=== PATIENT | male | born 1995 | race Caucasian/White ===

== ENCOUNTER 2018-02-02 19:29 | Emergency (ER) | payer BC, OTHER ==
[2018-02-02 19:46] VITALS: BP 128/79
--- NOTE | 2018-02-02 20:02 | UC ---
Back Pain HPI - HPI Summary HPI Summary: This patient is a 22 year old M presenting to [facility] care with a chief complaint of bilateral flank pain (right worse than left) that began earlier today. The patient rates the pain 4/10 in severity. Symptoms aggravated by nothing. Symptoms alleviated by nothing. Patient reports fatigue, decreased appetite, headache, increased urinary frequency, nausea, and slight constipation. Patient denies dysuria. Patient reports he has been taking ibuprofen every day for the past 4 days due to shoulder pain (gym injury). - History of Current Complaint Chief Complaint: UCGeneralIllness Stated Complaint: LOW BACK PAIN Time Seen by Provider: 02/02/18 19:52 Hx Obtained From: Patient Onset/Duration: Sudden Onset, Lasting Hours, Still Present Timing: Constant Severity Initially: Moderate Severity Currently: Moderate Pain Intensity: 4 Pain Scale Used: 0-10 Numeric Character: Aching Aggravating Factor(s): Nothing Alleviating Factor(s): Nothing Associated Signs And Symptoms: Positive: Other - Positive fatigue, decreased appetite, headache, increased urinary frequency, and slight constipation. Negative dysuria. - Allergies/Home Medications Allergies/Adverse Reactions: Allergies Allergy/AdvReac Type Severity Reaction Status Date / Time No Known Allergies Allergy Unverified 02/02/18 19:46 Home Medications: Home Medications Vit C/Ascorb Sod/Multivit-Min [Emergen-C 500 mg Chewable Tab] 500 mg PO DAILY WITH MEAL 02/02/18 [History Confirmed 02/02/18] PMH/Surg Hx/FS Hx/Imm Hx Previously Healthy: No Endocrine History: Other Other Endocrine History: Negative diabetes Cardiovascular History: Other Other Cardiovascular History: Negative HTN - Surgical History Surgical History: None Surgery Procedure, Year, and Place: Tonsil - Family History Known Family History: Negative: Seizure Disorder - Social History Occupation: Student Lives: With Family Alcohol Use: None Substance Use Type: Marijuana Smoking Status (MU): Never Smoked Tobacco Review of Systems Constitutional: Chills, Fatigue Gastrointestinal: Nausea, Other - Bilateral flank pain, decreased appetite, and slight constipation Genitourinary: Frequency, Other - Negative dysuria Neurological: Headache All Other Systems Reviewed And Are Negative: Yes Physical Exam - Summary Physical Exam Summary: General: well-appearing, no pain distress Skin: warm, color reflects adequate perfusion, dry Head: normal Eyes: EOMI, HORTENCIA ENT: normal Neck: supple, nontender Respiratory: CTA, breath sounds present Cardiovascular: RRR Abdomen: soft. Minimal tenderness to percussion bilateral flanks Bowel: present Musculoskeletal: normal, strength/ROM intact Neurological: sensory/motor intact, A&O x3 Psychological: affect/mood appropriate Triage Information Reviewed: Yes Vital Signs: Initial Vital Signs Temp 98.7 F 02/02/18 19:38 Pulse 53 02/02/18 19:38 Resp 18 02/02/18 19:38 BP 128/79 02/02/18 19:38 Pulse Ox 100 02/02/18 19:38 Vital Signs Reviewed: Yes Back Pain Course/Dx - Course Course Of Treatment: THE FLANK PAIN WAS 7/10 EARLIER TODAY. IT IS 4/10 IN CLINIC. UA SHOWED SOME BLOOD. NO ANTERIOR ABD PAIN. NO FEVER IN CLINIC. THE PLAN IS TO STOP THE IBUPROFEN AND DRINK PLENTY OF FLUIDS. WILL CHECK CBC AND CMP ALSO. DISCUSSED GOING TO THE EMERGENCY DEPARTMENT TONIGHT IF CONDITION WORSENS. F/U PMD; RECHECK SOONER IF WORSE. - Differential Dx/Diagnosis Provider Diagnoses: BILATERAL FLANK PAIN. HEMATURIA Discharge - Sign-Out/Discharge Documenting (check all that apply): Patient Departure - Discharge Plan Condition: Stable Disposition: HOME Patient Education Materials: Hematuria (ED), Flank Pain (ED) Referrals: Tyrese Montanez MD [Primary Care Provider] - Additional Instructions: FOLLOW UP WITH YOUR DOCTOR. STOP TAKING IBUPROFEN. DRINK PLENTY OF WATER. YOU HAVE BLOOD WORK RESULTS PENDING. GET RECHECKED FOR ANY WORSENING OF YOUR CONDITION; PAIN, FEVER, YOU FEEL ILL OR QUESTIONS OR CONCERNS. - Billing Disposition and Condition Condition: STABLE Disposition: Home Attestation Statement Scribe Attestation: This is darline Grace documenting for attending Maykel Hull MD. User Type: Provider with Scribe Provider Attestation: The documentation recorded by the viraibe accurately reflects the service I personally performed and the decisions made by me.
[2018-02-03 11:05] LABS: Hematocrit 45 % (42-52); Hemoglobin 15.2 g/dl (14.0-18.0); Mean Corpuscular HGB Conc 34 g/dl (31-36); Mean Corpuscular Hemoglobin 32 pg (27-31); Mean Corpuscular Volume 93 fL (80-94); Platelet Count 197 10^3/ul (150-450); Red Blood Count 4.82 10^6/ul (4.00-5.40); Red Cell Distribution Width 13 % (10.5-15); White Blood Count 6.6 10^3/ul (3.5-10.8)
[2018-02-03 11:08] LABS: ABS Basophils 0 10^3/ul (0-0.2); ABS Eosinophils 0.2 10^3/ul (0-0.6); ABS Lymphocytes 1.3 10^3/ul (1.0-4.8); ABS Monocytes 0.9 10^3/ul (0-0.8); ABS Neutrophils 4.3 10^3/ul (1.5-7.7)
[2018-02-03 11:31] LABS: EGFR Non-African American 111.7 (>60)
[2018-02-03 11:35] LABS: ABS Basophils 0 10^3/ul (0-0.2); ABS Neutrophils 3.6 10^3/ul (1.5-7.7); Monocytes % 8 % (0-7)
--- NOTE | 2018-02-04 13:40 | UC ---
- Progress Note Progress Note: PLEASE CALL PATIENT. ADVISE THAT LAB WORK SHOWED SOME ABNORMALITIES INCLUDING CHANGES IN THE BLOOD COUNT THAT COULD BE INDICATIVE OF INFECTION AND MILDLY ELEVATED LFTS. LABS NEED TO BE REPEATED. FOLLOW-UP WITH PCP THIS WEEK OR GO TO THE ER IF SYMPTOMS ARE PERSISTENT OR WORSE. - GERALD VILLALPANDO MD Discharge - Sign-Out/Discharge Documenting (check all that apply): Post-Discharge Follow Up - Discharge Plan Condition: Stable Disposition: HOME Patient Education Materials: Hematuria (ED), Flank Pain (ED) Referrals: Tyrese Montanez MD [Primary Care Provider] - Additional Instructions: FOLLOW UP WITH YOUR DOCTOR. STOP TAKING IBUPROFEN. DRINK PLENTY OF WATER. YOU HAVE BLOOD WORK RESULTS PENDING. GET RECHECKED FOR ANY WORSENING OF YOUR CONDITION; PAIN, FEVER, YOU FEEL ILL OR QUESTIONS OR CONCERNS. - Billing Disposition and Condition Condition: STABLE Disposition: Home
== END 2018-02-02 20:35 | disposition home or self-care (01) ==
LOC: UCEAST 19:29
DX: M54.5 Low back pain (principal); R31.9 Hematuria, unspecified; R53.83 Other fatigue; R51 Headache; R35.0 Frequency of micturition; R11.0 Nausea; K59.00 Constipation, unspecified
CPT/HCPCS: 36415; 80053; 81003; 85025; 85060; 99211; G0463